=== PATIENT | female | born 1990 ===

== ENCOUNTER 2016-10-01 15:10 | Emergency (ER) | payer OTHER ==
[2016-10-01 15:31] VITALS: BMI 27.4
[2016-10-01 15:33] VITALS: BP 112/73; PULSE 61; RESP 17; TEMP 98.6; O2SAT 98
[2016-10-01] MEDS ORDERED: Tmp-Smz 800 mg-160 mg DS Tab PO STA (16:28)
[2016-10-01] MEDS ORDERED: Tmp-Smz 800 mg-160 mg DS Tab ONE (16:40)
--- NOTE | 2016-10-01 17:13 | C.PDOC ---
History Of Present Illness 26 yr old female presents to the ER for evaluation of a painful lump to the right anterior thigh for the past 2-3 days. Patient states, yesterday she was able to squeeze it and pus came out. Patient denies fever, leg pain, weakness or numbness. Time Seen by Provider: 10/01/16 15:52 Chief Complaint (Nursing): Abnormal Skin Integrity History Per: Patient History/Exam Limitations: no limitations Onset/Duration Of Symptoms: Days (2-3) Past Medical History Reviewed: Historical Data, Nursing Documentation, Vital Signs Vital Signs: Last Vital Signs Temp 98.6 F 10/01/16 15:32 Pulse 61 10/01/16 15:32 Resp 17 10/01/16 15:32 BP 112/73 10/01/16 15:32 Pulse Ox 98 10/01/16 19:17 Family History: States: No Known Family Hx - Social History Hx Alcohol Use: No Hx Substance Use: No Review Of Systems Except As Marked, All Systems Reviewed And Found Negative. Constitutional: Negative for: Fever Musculoskeletal: Negative for: Leg Pain Skin: Positive for: Other ((+) Painful lump to the right anterior thigh. ) Neurological: Negative for: Weakness, Numbness Physical Exam - Physical Exam Appears: Non-toxic, No Acute Distress Skin: Warm, Dry, Other ((+) Right Anterior Thigh - 1cm area of drained abscess. No erythema. No induration. No fluctuance. No tenderness. ) Head: Atraumatic, Normacephalic Eye(s): bilateral: Normal Inspection Oral Mucosa: Moist Extremity: Normal ROM, No Swelling Neurological/Psych: Oriented x3, Normal Speech, Normal Motor Gait: Steady ED Course And Treatment O2 Sat by Pulse Oximetry: 98 (RA ) Pulse Ox Interpretation: Normal Medical Decision Making Medical Decision Making: PLAN: * Bactrim PO * Keflex PO NOTE: Patient informed there is no need for I&D at this time. Instructed to continue applying warm compresses and take antibiotics as prescribed. Disposition - Disposition Referrals: [facility] [Outside] Disposition: HOME/ ROUTINE Disposition Time: 17:10 Condition: GOOD Additional Instructions: Apply warm compresses 4-5 times per day. Followup with the medical doctor within 1-2 days. Return if worsened. Prescriptions: Cephalexin [cephalexin] 500 mg PO BID #13 cap Sulfamethoxazole/Trimethoprim [Bactrim DS 800 mg-160 mg] 1 tab PO BID #13 tab Instructions: Abscess (GEN) Forms: [employer] (Pakistani) - Clinical Impression Clinical Impression: Abscess - PA / [employer] / Resident Statement MD/DO has reviewed & agrees with the documentation as recorded. - Scribe Statement The provider has reviewed the documentation as recorded by the Scribe Beatriz Weston All medical record entries made by the Scribe were at my direction and personally dictated by me. I have reviewed the chart and agree that the record accurately reflects my personal performance of the history, physical exam, medical decision making, and the department course for this patient. I have also personally directed, reviewed, and agree with the discharge instructions and disposition.
== END 2016-10-01 17:19 | disposition home or self-care (01) ==
LOC: C.ER 15:10
DX: L02.415 Cutaneous abscess of right lower limb (principal)